=== PATIENT | male | born 1985 | race Caucasian/White ===

== ENCOUNTER 2017-04-22 19:43 | Inpatient (IN) | payer OTHER ==
[~2017-04-22] VITALS: Ht 170.2 cm; Wt 73.4 kg
[2017-04-22] MEDS ORDERED: SODIUM CHLORIDE 0.9% 1L BAG IV* STA (20:54)
[2017-04-22] MEDS ORDERED: ACETAMINOPHEN 325 MG TAB PO STA (20:54)
[2017-04-22 21:37] LABS: ADD SCAN DIFF NO
[2017-04-22 21:41] LABS: BASOPHILS % 0.1 % (0.0-2.0); EOSINOPHILS % 0.1 % (0.0-7.0); HEMATOCRIT 43.7 % (42.0-52.0); HEMOGLOBIN 14.4 g/dl (14.0-18.0); LYMPHOCYTES # 2.4 10^3/ul (0.8-2.9); LYMPHOCYTES % 33.7 % (15.0-51.0); MEAN CORPUSCULAR HEMOGLOBIN 29.4 pg (29.0-33.0); MEAN CORPUSCULAR VOLUME 89.2 fl (82.0-101.0); MEAN PLATELET VOLUME 10.2 fl (7.4-10.4); MONOCYTE # 0.5 10^3/ul (0.3-0.9); MONOCYTES % 6.2 % (0.0-11.0); NEUTROPHIL # 4.3 10^3/ul (1.6-7.5); NEUTROPHILS % 59.6 % (39.0-77.0); PLATELET COUNT 213 10^3/UL (140-415); RED CELL DISTRIBUTION WIDTH 12.1 % (11.5-14.5); WHITE BLOOD COUNT 7.2 10^3/ul (4.8-10.8)
[2017-04-22 21:41] LABS: ADD UMIC NO; UR BILIRUBIN (Dip) NEGATIVE (NEGATIVE); UR BLOOD (Dip) NEGATIVE (NEGATIVE); UR CLARITY CLEAR (CLEAR); UR COLOR LT. YELLOW (YELLOW); UR GLUCOSE (Dip) NEGATIVE (NEGATIVE); UR KETONES (Dip) NEGATIVE (NEGATIVE); UR LEUKOCYTE ESTERASE (Dip) NEGATIVE (NEGATIVE); UR NITRITE (Dip) NEGATIVE (NEGATIVE); UR TOTAL PROTEIN (Dip) NEGATIVE (NEGATIVE); UR UROBILINOGEN (Dip) 0.2 E.U./dL (0.1-1.0)
--- NOTE | 2017-04-22 21:44 | RADRPT ---
PROCEDURE: XR Chest. CLINICAL INDICATION: chest pain TECHNIQUE: Single frontal view of the chest was obtained COMPARISON: None FINDINGS: The heart and mediastinum are within normal limits. The lungs are clear. There is no pleural effusion or pneumothorax. RPTAT: AA IMPRESSION: No acute disease. .Hemant Boggs MD, Date Time Electronically viewed and signed by .Hemant Boggs MD, on 04/22/2017 21:44 .S/
[2017-04-22 21:56] LABS: INR 0.99; PARTIAL THROMBOPLASTIN TIME 27.1 Sec (25.0-35.0); PROTIME 13.1 Sec (12.2-14.2)
[2017-04-22 21:59] LABS: ALBUMIN 5.1 g/dl (3.3-4.9); ALBUMIN/GLOBULIN RATIO 1.64; BILIRUBIN,INDIRECT 0.3 mg/dl (0-1.1); BILIRUBIN,TOTAL 0.3 mg/dl (0.2-1.3); CALCIUM 9.6 mg/dl (8.4-10.2); CREATININE 0.87 mg/dl (0.61-1.24); POTASSIUM 3.9 mmol/L (3.5-5.1); TOTAL PROTEIN 8.2 g/dl (6.1-8.1)
[2017-04-22 22:16] LABS: TROPONIN-I 4.38 ng/ml (0.00-0.12)
--- NOTE | 2017-04-22 22:23 | ERD ---
ER Documentation Chief Complaint Date/Time DATE: 04/22/17 TIME: 22:20 Chief Complaint Fever and abdominal pain. Given IM antibiotics and amoxicillin HPI This is a 31-year-old male presents to the ER for fever that started on Wednesday. Patient was asymptomatic other than fever. On Wednesday patient went to his PCP who gave him a dose of ceftriaxone and then went to the dose on Wednesday. Patient was sent home with amoxicillin 3 times daily. Today patient called his primary care doctor who informed him that blood work that was drawn at the office was normal and told him to discontinue ibuprofen to see if he still had a fever. Patient is continued ibuprofen and states that he was still spiking fevers up to 103. Patient does admit to some mild joint pain, mild crampy abdominal pain and a mild cough that started today. He denies any chest pain, shortness of breath, dyspnea. She did travel to [facility] a week before he got sick. There are no sick contacts at home. He denies any nausea vomiting or diarrhea he denies any urine frequency or dysuria. Denies any hematuria ROS 12 point review of systems was done, all negative except per HPI. Allergies Allergies: Coded Allergies: No Known Allergy (Unverified , 04/22/17) PMhx/Soc Medical and Surgical Hx: pt denies Medical Hx History of Surgery: Yes (SKIN GRAFTS CHILD) Anesthesia Reaction: No Hx Neurological Disorder: No Hx Respiratory Disorders: No Hx Cardiac Disorders: No Hx Psychiatric Problems: No Hx Miscellaneous Medical Probl: No Hx Alcohol Use: No Hx Substance Use: No Hx Tobacco Use: Yes Smoking Status: Current every day smoker Physical Exam Vitals Vital Signs Date Time Temp Pulse Resp B/P Pulse Ox O2 Delivery O2 Flow Rate FiO2 04/22/17 22:05 101.2 104 18 123/75 97 Room Air 04/22/17 19:59 103.0 108 20 116/79 97 Physical Exam GENERAL: The patient is well developed and appropriate for usual state of health , in no apparent distress. HEENT: Atraumatic. Conjunctivae are pink. Pupils equal, round, and reactive to light. Extraocular muscles are grossly intact. Bilateral tympanic membranes are clear with no evidence of erythema, effusion or dulling of the light reflex. The oropharynx is clear with no erythema or exudates. NECK: C-spine is soft and supple. There is no cervical lymphadenopathy. Negative Kernig negative Brudzinski CHEST: Clear to auscultation bilaterally. There are no rales, wheezes or rhonchi. HEART: Regular rate and rhythm. No murmurs, clicks, rubs or gallops. ABDOMEN: Soft, nontender and nondistended. Good bowel sounds. No rebound or guarding. No gross peritonitis. No gross organomegaly or masses. No Freire sign or McBurney point tenderness. BACK: No midline or flank tenderness. NEURO: Alert and oriented. Cranial nerves II through XII are intact. Motor strength in all 4 extremities with 5/5 strength. Sensation grossly intact. Normal speech and gait. SKIN: There is no apparent rash or petechia. The skin is warm and dry. Result Diagram: 04/22/17210804/22/172108 Results 24 hrs Laboratory Tests Test 04/22/17 21:03 04/22/17 21:09 Urine Color LT. YELLOW Urine Clarity CLEAR Urine pH 7.5 Urine Specific [place] 1.015 Urine Ketones NEGATIVE Urine Nitrite NEGATIVE Urine Bilirubin NEGATIVE Urine Urobilinogen 0.2 E.U./dL Urine Leukocyte Esterase NEGATIVE Urine Hemoglobin NEGATIVE Urine Glucose NEGATIVE% Urine Total Protein NEGATIVE White Blood Count 7.210^3/ul Red Blood Count 4.9010^6/ul Hemoglobin 14.4g/dl Hematocrit 43.7% Mean Corpuscular Volume 89.2fl Mean Corpuscular Hemoglobin 29.4pg Mean Corpuscular Hemoglobin Concent 33.0g/dl Red Cell Distribution Width 12.1% Platelet Count 10704^3/UL Mean Platelet Volume 10.2fl Neutrophils % 59.6% Lymphocytes % 33.7% Monocytes % 6.2% Eosinophils % 0.1% Basophils % 0.1% Nucleated Red Blood Cells % 0.0/100WBC Neutrophils # 4.310^3/ul Lymphocytes # 2.410^3/ul Monocytes # 0.510^3/ul Eosinophils # 0.010^3/ul Basophils # 0.010^3/ul Nucleated Red Blood Cells # 0.010^3/ul Prothrombin Time 13.1Sec Prothrombin Time Ratio 1.0 INR International Normalized Ratio 0.99 Activated Partial Thromboplast Time 27.1Sec Sodium Level 142mmol/L Potassium Level 3.9mmol/L Chloride Level 102mmol/L Carbon Dioxide Level 28mmol/L Anion Gap 16 Blood Urea Nitrogen 8mg/dl Creatinine 0.87mg/dl Glucose Level 110mg/dl Lactic Acid Level 1.8mmol/L Calcium Level 9.6mg/dl Total Bilirubin 0.3mg/dl Direct Bilirubin 0.00mg/dl Indirect Bilirubin 0.3mg/dl Aspartate Amino Transf (AST/SGOT) 75IU/L Alanine Aminotransferase (ALT/SGPT) 97IU/L Alkaline Phosphatase 113IU/L Troponin I 4.380ng/ml Total Protein 8.2g/dl Albumin 5.1g/dl Globulin 3.10g/dl Albumin/Globulin Ratio 1.64 Current Medications Medications (Trade) Dose Ordered Sig/Ramona Route PRN Reason Start Time Stop Time Status Last Admin Dose Admin Sodium Chloride (NS) 2,140 ml BOLUS OVER 2 HOURS STAT IV* 04/22/17 20:54 04/22/17 20:58 DC 04/22/17 21:07 Acetaminophen (Tylenol Tab) 650 mg ONCE STAT PO 04/22/17 20:54 04/22/17 20:58 DC 04/22/17 21:07 Procedures/MDM Differential diagnosis includes but is not limited to; viral illness, influenza , otitis media, strep throat, endocarditis, meningitis, sepsis. At this time patient's troponin is elevated, he will be transferred to ER 1 for further management and care and to rule out pulmonary embolism. Departure Diagnosis: Primary Impression: Fever Condition: EJ De La Cruz Apr 22, 2017 22:23
--- NOTE | 2017-04-22 22:32 | RADRPT ---
PROCEDURE: Right upper quadrant ultrasound. CLINICAL INDICATION: Sepsis, stomach cramps, fever. TECHNIQUE: Multiple real-time longitudinal and transverse images of the right upper quadrant of th e abdomen were acquired utilizing a curved array transducer. Images were reviewed on a high-resoluti on PACS workstation. COMPARISON: None. FINDINGS: The pancreas head and body are unremarkable. The pancreas tail is not well seen. The liver is echogenic, consistent with fatty infiltration. A focal area of fatty sparing is seen wi thin the liver, anterior to the gallbladder and main portal vein. The liver measures 15.5 cm in dale gth. No hepatic lesion or intrahepatic biliary ductal dilatation is seen. The portal vein is paten t with hepatopetal flow. No gallstones or sludge are seen within the gallbladder lumen. The gallbladder wall is not thickene d. There is no pericholecystic fluid. The common bile duct measures 3 mm in diameter, not dilated. The right kidney measures 9.9 cm in length. Renal echogenicity is normal. There is no hydronephros is, urinary calculus, or renal mass. The visualized portions of the aorta and IVC are unremarkable. IMPRESSION: 1. Normal appearance of gallbladder and bile ducts. 2. Fatty infiltration of the liver. RPTAT: HTAR .Trae Bruno MD, Date Time Electronically viewed and signed by .Trae Bruno MD, MD on 04/22/2017 22:32 .R/
[2017-04-22] MEDS ORDERED: SOD CHLORIDE 0.9% 100 ML ONE (22:50)
[2017-04-22] MEDS ORDERED: IOHEXOL 100 ML ONE (22:50)
[2017-04-22] MEDS ORDERED: IOHEXOL 350MG/ML 50 ML BTL ONE (22:51)
[2017-04-22] MEDS ORDERED: IBUP-1542 PO (23:27)
[2017-04-22] MEDS ORDERED: AMO500 PO (23:27)
[2017-04-23] VITALS (13 sets, daily range): BP systolic 93–174; BP diastolic 52–82; PULSE 70–97; RESP 18–20; TEMP 98.2; Ht 170.2 cm; Wt 73.4 kg
--- NOTE | 2017-04-23 00:16 | RADRPT ---
PROCEDURE: CT abdomen and pelvis with intravenous contrast. CLINICAL INDICATION: Pain. TECHNIQUE: CT of the abdomen/pelvis was performed utilizing axial images with reconstructions in s agittal and coronal planes after uneventful administration of 100 cc Omnipaque 300. The administered radiation dose is CTDI 17 mGy, DLP 945 mGy-cm. COMPARISON: No pertinent prior examinations were submitted for comparison. FINDINGS: Visualized Chest: Please refer to the CTA of the chest performed at the same time. Abdomen: The liver, spleen, pancreas, gallbladder,and adrenal glands are unremarkable. The kidneys are without hydronephrosis. No definite urinary calculi are seen. There is no evidence of bowel obstruction. The appendix is normal. No intra-abdominal free air is seen. There is no evidence of intra-abdominal adenopathy or free fluid. There is no evidence of aortic dissection or aneurysm. Major branches of the aorta are patent. Pelvis: There is no evidence of pelvic adenopathy or free fluid. The prostate and bladder are unremarkable. Osseous structures: Unremarkable. IMPRESSION: No acute findings. No evidence of aortic dissection or aneurysm. RPTAT: HIKT .Reagan Allen MD, MD Date Time Electronically viewed and signed by .Reagan Allen MD, on 04/23/2017 00:15 .T/
--- NOTE | 2017-04-23 00:19 | RADRPT ---
PROCEDURE: CT angiogram chest abdomen. CLINICAL INDICATION: Chest and abdominal pain TECHNIQUE: CT angiogram of the chest/abdomen/pelvis was performed utilizing axial images with burt nstructions in sagittal and coronal planes after the uneventful intravenous administration of 120 cc Omnipaque 350 contrast. The administered radiation dose is CTDI 6.6 mGy, DLP 764 mGy-cm. COMPARISON: No pertinent prior examinations are submitted for comparison. FINDINGS: Aortogram: There is no evidence of aortic dissection or aneurysm. Some scattered atherosclerotic c alcifications are noted within the aorta and its branches. Major branches of the aorta are patent. Pulmonary angiogram: The pulmonary arteries are adequately opacified to the level of the segmental pulmonary artery branches. There is minimal respiratory motion artifact. There is no evidence of p ulmonary embolus. Chest: A small area of patchy airspace opacity is noted within the peripheral right lower lobe. The trache obronchial tree is patent. There is no evidence of pleural effusion. The heart is normal in size. No pericardial effusion is seen. Mildly enlarged subcarinal and right hilar lymph nodes are present. Mild gynecomastia is noted. Abdomen: Please refer to the separately dictated report of the abdomen and pelvis. Osseous structures: Unremarkable. IMPRESSION: No evidence of aortic dissection or aneurysm. No evidence of pulmonary embolus. Small area of patchy airspace opacity in the right lower lobe likely due to a small area of pneumoni tis. Mild mediastinal and right hilar adenopathy which is nonspecific. RPTAT: HIKT .Reagan Allen MD, MD Date Time Electronically viewed and signed by .Reagan Allen MD, on 04/23/2017 00:18 .T/
[2017-04-23] MEDS ORDERED: LEVOFLOXACIN 750MG/D5W (PMX) 150 ML IVPB ONE (01:00)
[2017-04-23] MEDS ORDERED: CEFTRIAXONE 1 GM/50 ML (PMX) 50 ML IVPB ONE (01:00)
[2017-04-23] MEDS ORDERED: ASPIRIN 325 MG TAB PO ONE (01:00)
--- NOTE | 2017-04-23 01:51 | ERA ---
ER Documentation Chief Complaint Date/Time DATE: 04/23/17 TIME: 01:46 Chief Complaint Fever and abdominal pain HPI The patient was initially seen by the PA in ED 2 and sent to ED 1 for further evaluation The patient is a 31-year-old male, presenting to the ER because of intermittent fever, associated with abdominal pain for 5 days. He traveled to [place] about 2 weeks ago. He went to see his doctor 3 days ago and received Rocephin injection 3 days ago and 2 days ago and started on amoxicillin 2 days ago. He also complained of intermittent cough, dyspnea, chest pain today. He complains of diffuse abdominal pain, denied dysuria, diarrhea, constipation. He smokes, drinks socially, denies any illicit drug Past medical history: Mitral valve prolapse Past surgical history: None ROS All systems reviewed and are negative except as per history of present illness. Medications Home Meds Reported Medications Amoxicillin* (Amoxicillin*) 500 Mg Cap, 500 MG PO Q8, #30 CAP 04/22/17 Ibuprofen* (Ibuprofen*) 600 Mg Tablet, 600 MG PO Q6, TAB 04/22/17 Allergies Allergies: Coded Allergies: No Known Allergy (Unverified , 04/22/17) PMhx/Soc Medical and Surgical Hx: pt denies Medical Hx History of Surgery: Yes (SKIN GRAFTS DUE TO BLACK) Anesthesia Reaction: No Hx Neurological Disorder: No Hx Respiratory Disorders: No Hx Cardiac Disorders: Yes (MITRAL VALVE PROLAPSE) Hx Psychiatric Problems: No Hx Miscellaneous Medical Probl: No Hx Alcohol Use: Yes Hx Substance Use: No Hx Tobacco Use: Yes Smoking Status: Current some day smoker Physical Exam Vitals Vital Signs Date Time Temp Pulse Resp B/P Pulse Ox O2 Delivery O2 Flow Rate FiO2 04/23/17 01:09 98.2 79 18 111/80 100 Room Air 04/22/17 22:42 99.5 100 20 129/79 99 Room Air 04/22/17 22:05 101.2 104 18 123/75 97 Room Air 04/22/17 19:59 103.0 108 20 116/79 97 Physical Exam Const: No acute distress. Head: Atraumatic. Eyes: Normal Conjunctiva. ENT: Normal External Ears, Nose and Mouth. Bilateral tympanic membrane and oropharynx are within normal limits Neck: Full range of motion. No meningismus. Resp: Clear to auscultation, tachypneic Cardio: Regular tachycardic Abd: Soft, non distended, normal bowel sounds, diffuse abdominal tenderness, more tender in the right upper quadrant, no rigidity, rebound, CVA tenderness Skin: No petechiae or rashes. Back: No midline or flank tenderness. Ext: No cyanosis, or edema. Neur: Awake and alert. No focal deficit Psych: Normal Mood and Affect. Result Diagram: 04/22/17210804/22/172108 Results 24 hrs Laboratory Tests Test 04/22/17 21:03 04/22/17 21:09 04/22/17 23:33 Urine Color LT. YELLOW Urine Clarity CLEAR Urine pH 7.5 Urine Specific [place] 1.015 Urine Ketones NEGATIVE Urine Nitrite NEGATIVE Urine Bilirubin NEGATIVE Urine Urobilinogen 0.2 E.U./dL Urine Leukocyte Esterase NEGATIVE Urine Hemoglobin NEGATIVE Urine Glucose NEGATIVE% Urine Total Protein NEGATIVE White Blood Count 7.210^3/ul Red Blood Count 4.9010^6/ul Hemoglobin 14.4g/dl Hematocrit 43.7% Mean Corpuscular Volume 89.2fl Mean Corpuscular Hemoglobin 29.4pg Mean Corpuscular Hemoglobin Concent 33.0g/dl Red Cell Distribution Width 12.1% Platelet Count 41557^3/UL Mean Platelet Volume 10.2fl Neutrophils % 59.6% Lymphocytes % 33.7% Monocytes % 6.2% Eosinophils % 0.1% Basophils % 0.1% Nucleated Red Blood Cells % 0.0/100WBC Neutrophils # 4.310^3/ul Lymphocytes # 2.410^3/ul Monocytes # 0.510^3/ul Eosinophils # 0.010^3/ul Basophils # 0.010^3/ul Nucleated Red Blood Cells # 0.010^3/ul Prothrombin Time 13.1Sec Prothrombin Time Ratio 1.0 INR International Normalized Ratio 0.99 Activated Partial Thromboplast Time 27.1Sec Sodium Level 142mmol/L Potassium Level 3.9mmol/L Chloride Level 102mmol/L Carbon Dioxide Level 28mmol/L Anion Gap 16 Blood Urea Nitrogen 8mg/dl Creatinine 0.87mg/dl Glucose Level 110mg/dl Lactic Acid Level 1.8mmol/L 1.2mmol/L Calcium Level 9.6mg/dl Total Bilirubin 0.3mg/dl Direct Bilirubin 0.00mg/dl Indirect Bilirubin 0.3mg/dl Aspartate Amino Transf (AST/SGOT) 75IU/L Alanine Aminotransferase (ALT/SGPT) 97IU/L Alkaline Phosphatase 113IU/L Troponin I 4.380ng/ml Total Protein 8.2g/dl Albumin 5.1g/dl Globulin 3.10g/dl Albumin/Globulin Ratio 1.64 Current Medications Medications (Trade) Dose Ordered Sig/Ramona Route PRN Reason Start Time Stop Time Status Last Admin Dose Admin Sodium Chloride (NS) 2,140 ml BOLUS OVER 2 HOURS STAT IV* 04/22/17 20:54 04/22/17 20:58 DC 04/22/17 21:07 Acetaminophen (Tylenol Tab) 650 mg ONCE STAT PO 04/22/17 20:54 04/22/17 20:58 DC 04/22/17 21:07 Aspirin 325 mg 325 mg ONCE ONCE PO 04/23/17 01:00 04/23/17 01:01 DC 04/23/17 00:54 Ceftriaxone Sodium 50 ml @ 100 mls/hr ONCE ONCE IVPB 04/23/17 01:00 04/23/17 01:29 DC 04/23/17 00:54 Levofloxacin/ Dextrose (Levaquin 750 Mg/ D5W 150 ml (Pmx)) 150 ml @ 100 mls/hr ONCE ONCE IVPB 04/23/17 01:00 04/23/17 02:29 04/23/17 01:22 IV Flush 10 ml 10 ml STK-MED ONCE .ROUTE 04/22/17 22:50 04/23/17 00:46 DC Sodium Chloride 100 ml @ ud STK-MED ONCE .ROUTE 04/22/17 22:50 04/23/17 00:46 DC Iohexol (Omnipaque) 100 ml @ ud STK-MED ONCE .ROUTE 04/22/17 22:50 04/23/17 00:46 DC Iohexol (Omnipaque 350mg/ ml) 50 ml STK-MED ONCE .ROUTE 04/22/17 22:51 04/23/17 00:46 DC Procedures/[place] [id number] Radiology Main Line: [phone] DIAGNOSTIC IMAGING REPORT Patient: SAMEER BEAN : 1985 Age: 31 Sex: M MR #: [id number] DOS: 04/22/172053 Ordering MD: EJ HILL PA-C Location: E/R Room/Bed: PROCEDURE: Right upper quadrant ultrasound. CLINICAL INDICATION: Sepsis, stomach cramps, fever. TECHNIQUE: Multiple real-time longitudinal and transverse images of the right upper quadrant of the abdomen were acquired utilizing a curved array transducer. Images were reviewed on a high-resolution PACS workstation. COMPARISON: None. FINDINGS: The pancreas head and body are unremarkable. The pancreas tail is not well seen. The liver is echogenic, consistent with fatty infiltration. A focal area of fatty sparing is seen within the liver, anterior to the gallbladder and main portal vein. The liver measures 15.5 cm in length. No hepatic lesion or intrahepatic biliary ductal dilatation is seen. The portal vein is patent with hepatopetal flow. No gallstones or sludge are seen within the gallbladder lumen. The gallbladder wall is not thickened. There is no pericholecystic fluid. The common bile duct measures 3 mm in diameter, not dilated. The right kidney measures 9.9 cm in length. Renal echogenicity is normal. There is no hydronephrosis, urinary calculus, or renal mass. The visualized portions of the aorta and IVC are unremarkable. IMPRESSION: 1. Normal appearance of gallbladder and bile ducts. 2. Fatty infiltration of the liver. RPTAT: HTAR .Trae Bruno MD, Date Time Electronically viewed and signed by .Trae Bruno MD, on 04/22/2017 22:32 .R/ CC: EJ HILL [place] [address] Radiology Main Line: [phone] DIAGNOSTIC IMAGING REPORT Patient: SAMEER BEAN : 1985 Age: 31 Sex: M MR #: [id number] DOS: 04/22/172053 Ordering MD: EJ HILL PA-C Location: FTE Room/Bed: PROCEDURE: XR Chest. CLINICAL INDICATION: chest pain TECHNIQUE: Single frontal view of the chest was obtained COMPARISON: None FINDINGS: The heart and mediastinum are within normal limits. The lungs are clear. There is no pleural effusion or pneumothorax. RPTAT: AA IMPRESSION: No acute disease. .Hemant Boggs MD, Date Time Electronically viewed and signed by .Hemant Boggs MD, on 04/22/2017 21: 44 .S/ CC: EJ HILL [place] [address] Radiology Main Line: [phone] DIAGNOSTIC IMAGING REPORT Patient: SAMEER BEAN : 1985 Age: 31 Sex: M MR #: [id number] DOS: 04/22/172229 Ordering MD: EBONY GONZALES MD Location: E/R Room/Bed: PROCEDURE: CT angiogram chest abdomen. CLINICAL INDICATION: Chest and abdominal pain TECHNIQUE: CT angiogram of the chest/abdomen/pelvis was performed utilizing axial images with reconstructions in sagittal and coronal planes after the uneventful intravenous administration of 120 cc Omnipaque 350 contrast. The administered radiation dose is CTDI 6.6 mGy, DLP 764 mGy-cm. COMPARISON: No pertinent prior examinations are submitted for comparison. FINDINGS: Aortogram: There is no evidence of aortic dissection or aneurysm. Some scattered atherosclerotic calcifications are noted within the aorta and its branches. Major branches of the aorta are patent. Pulmonary angiogram: The pulmonary arteries are adequately opacified to the level of the segmental pulmonary artery branches. There is minimal respiratory motion artifact. There is no evidence of pulmonary embolus. Chest: A small area of patchy airspace opacity is noted within the peripheral right lower lobe. The tracheobronchial tree is patent. There is no evidence of pleural effusion. The heart is normal in size. No pericardial effusion is seen. Mildly enlarged subcarinal and right hilar lymph nodes are present. Mild gynecomastia is noted. Abdomen: Please refer to the separately dictated report of the abdomen and pelvis. Osseous structures: Unremarkable. IMPRESSION: No evidence of aortic dissection or aneurysm. No evidence of pulmonary embolus. Small area of patchy airspace opacity in the right lower lobe likely due to a small area of pneumonitis. Mild mediastinal and right hilar adenopathy which is nonspecific. RPTAT: HIKT .Reagan Allen MD, MD Date Time Electronically viewed and signed by .Reagan Allen MD, MD on 04/23/2017 00:18 .T/ CC: EBONY GONZALES MD [place] [address] Radiology Main Line: [phone] DIAGNOSTIC IMAGING REPORT Patient: SAMEER BEAN : 1985 Age: 31 Sex: M MR #: [id number] DOS: 04/22/170 Ordering MD: EBONY GONZALES MD Location: E/R Room/Bed: PROCEDURE: CT abdomen and pelvis with intravenous contrast. CLINICAL INDICATION: Pain. TECHNIQUE: CT of the abdomen/pelvis was performed utilizing axial images with reconstructions in sagittal and coronal planes after uneventful administration of 100 cc Omnipaque 300. The administered radiation dose is CTDI 17 mGy, DLP 945 mGy-cm. COMPARISON: No pertinent prior examinations were submitted for comparison. FINDINGS: Visualized Chest: Please refer to the CTA of the chest performed at the same time. Abdomen: The liver, spleen, pancreas, gallbladder,and adrenal glands are unremarkable. The kidneys are without hydronephrosis. No definite urinary calculi are seen. There is no evidence of bowel obstruction. The appendix is normal. No intra- abdominal free air is seen. There is no evidence of intra-abdominal adenopathy or free fluid. There is no evidence of aortic dissection or aneurysm. Major branches of the aorta are patent. Pelvis: There is no evidence of pelvic adenopathy or free fluid. The prostate and bladder are unremarkable. Osseous structures: Unremarkable. IMPRESSION: No acute findings. No evidence of aortic dissection or aneurysm. RPTAT: HIKT .Reagan Allen MD, MD Date Time Electronically viewed and signed by .Reagan Allen MD, MD on 04/23/2017 00:15 .T/ CC: EBONY GONZALES MD MEDICAL MAKING DECISION: The patient is a 31-year-old male, presenting with acute pneumonia, acute troponin elevation of unclear significance. He was treated with normal saline 30 mL/kg IV, Tylenol 650 mg p.o. for fever, aspirin 325 mg p.o. for acute troponin elevation, Rocephin IV and Levaquin IV for acute pneumonia The differential diagnoses considered include but are not limited to acute non- STEMI, acute viral myocarditis, acute endocarditis, acute coronary syndrome, acute myocardial infarction, pericarditis, pulmonary embolism, aortic dissection , pneumonia, pleural effusion, pneumothorax, GERD, chest wall pain. Critical Care: Time: 35 minutes excluding all billable procedures. Treatments/Evaluations: Close monitoring and treatment of unstable vital signs, cardiorespiratory, and neurologic status, while maintaining tight balance of fluid, respiratory, and cardiac interventions. Departure Diagnosis: Primary Impression: Pneumonia Additional Impression: Elevated troponin Condition: Stable Comments I discussed the findings with the patient. I discussed the patient with the on- call hospitalist Dr. Chacon at 1240 am who was made aware of the lab, the treatment, the patient condition. The patient is admitted to telemetry EBONY GONZALES MD Apr 23, 2017 01:51
[2017-04-23] MEDS ORDERED: HEPARIN 1000 UNITS/ML 10 ML INJ IV ONE (03:00)
[2017-04-23] MEDS ORDERED: NACL 0.9% 3 ML SYG IV SCH (03:00)
[2017-04-23] MEDS ORDERED: morphine 2 MG INJ IV PRN (03:00)
[2017-04-23] MEDS ORDERED: ONDANSETRON 4 MG INJ IV PRN (03:00)
[2017-04-23] MEDS: SOD CHLORIDE 0.9% 1,000 ML IV SCH ×2 (03:29→20:21)
[2017-04-23] MEDS: HEPARIN 25000 UNITS/D5W 250 ML IV SCH ×2 (03:37→17:55)
[2017-04-23] MEDS: PANTOPRAZOLE 40 MG INJ IV SCH (06:05)
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
[2017-04-23] MEDS ORDERED: HEPARIN 1000 UNITS/ML 10 ML INJ IV PRN (09:00)
[2017-04-23] MEDS: ASPIRIN 81 MG TAB PO SCH (09:45)
[2017-04-23] MEDS ORDERED: METOPROLOL 50 MG TAB PO STA ×2 (10:16→10:50)
[2017-04-23] MEDS ORDERED: ALPRAZOLAM 0.25 MG TAB PO STA (10:50)
--- NOTE | 2017-04-23 10:57 | RADRPT ---
Echocardiogram Report Patient Name: SAMEER BEAN Gender: Male Date: 1985 Study Date: 23-Apr-2017 Cheese Packer: Kendrick Leon [facility] Location: 5537 Ref. Physician: MARIANNE VILLAGRAN Quality: Good Procedures: Transthoracic echocardiogram with complete 2D, M-Mode, and doppler examination. Indications: Evaluate troponin. 2D/M Mode Doppler Measurement Value Normal Ranges Measurement Value Normal Ranges LVIDd 2D 4.2 3.5 - 5.6 cm STEVEN Vmax 2.7 cm2 LVIDs 2D 2.4 2.1 - 4.1 cm STEVEN VTI 2.7 cm2 LVPWd 2D 1.3 0.6 - 1.1 cm AV Peak Azar 0.9 m/sec IVSd 2D 1.3 0.6 - 1.1 cm AV Peak PG 3.1 mmHg AoR Diam 2D 2.8 2.0 - 3.7 cm LVOT Peak Azar 0.8 m/sec EDV 2D 76.7 cm3 LVOT Peak PG 2.4 mmHg ESV 2D 13.9 cm3 MV E Peak Azar 0.8 m/sec LA Dimen 2D 3.1 2.3 - 4.0 cm MV A Peak Azar 0.6 m/sec LVOT Diam 2.0 cm MV E/A 1.3 MV Decel Time 242 msec MV Decel Plumas 3 MV E/A 1.3 TR Peak Azar 2.4 m/sec TR Peak PG 22.7 mmHg RVSP 25.7 mmHg Findings Left Ventricle: Normal left ventricular systolic function. Normal left ventricular cavity size. Mild concentric left ventricular hypertrophy. Ejection fraction is visually estimated at 55 %. Tissue Doppler/Mitral Doppler indices are within normal limits. Right Ventricle: Normal right ventricular size. Normal right ventricular systolic function. Left Atrium: The left atrium is normal in size. Right Atrium: The right atrium is normal in size. Mitral Valve: Normal appearance and function of the mitral valve with trace physiologic regurgitation. Aortic Valve: Normal appearance of the aortic valve. No significant aortic stenosis or insufficiency. Tricuspid Valve: Normal appearance of the tricuspid valve. Estimated peak PA systolic pressure 25 mmHg. There is trace tricuspid regurgitation. Pulmonic Valve: Normal pulmonic valve appearance. Pericardium: Normal pericardium with no significant pericardial effusion. Aorta: Normal aortic root. IVC: Normal size and normal respiratory collapse consistent with normal right atrial pressure. Pulmonary Artery: Normal pulmonary artery size. Conclusions Normal left ventricular systolic function. Normal left ventricular cavity size. Mild concentric left ventricular hypertrophy. Ejection fraction is visually estimated at 55 %. Tissue Doppler/Mitral Doppler indices are within normal limits. Normal right ventricular size. Normal right ventricular systolic function. The left atrium is normal in size. The right atrium is normal in size. No significant valvular stenosis or regurgitation seen. Normal pericardium with no significant pericardial effusion. Electronically Signed By: Malik Jaime 23-Apr-2017 10:56:44 -0700 Patient Name: SAMEER BEAN Study Date: 23-Apr-2017 [id number]
[2017-04-23 11:00] LABS: CK-MB 10.7 ng/ml (0.0-2.4); TROPONIN-I 4.9 ng/ml (0.00-0.12)
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
[2017-04-23 11:40] LABS: OPIATES Negative (NEGATIVE)
[2017-04-23 11:42] LABS: BARBITURATES Negative (NEGATIVE); BENZODIAZEPINES Negative (NEGATIVE)
[2017-04-23 11:43] LABS: CANNABINOIDS Negative (NEGATIVE); COCAINE Negative (NEGATIVE)
[2017-04-23] MEDS ORDERED: DILTIAZEM 60 MG TAB PO STA (13:11)
[2017-04-23] MEDS ORDERED: METOPROLOL 100 MG TAB PO STA (14:30)
--- NOTE | 2017-04-23 14:36 | RADRPT ---
Vent Rate: 71 bpm RR Interval: 0 msec MO Interval: 132 msec QRS Duration: 94 msec QT Interval: 374 msec QTC Interval: 406 msec P-R-T [place]: 49 - 66 - 51 degrees Normal sinus rhythm Normal ECG Electronically Signed By: Malik Jaime [id number]
[2017-04-23] MEDS: ACETAMINOPHEN 325 MG TAB PO PRN (15:05)
[2017-04-23] MEDS: IBUPROFEN 400 MG TAB PO SCH (17:11)
[2017-04-23] MEDS: ATORVASTATIN 40 MG TAB PO SCH (20:20)
[2017-04-24] VITALS (12 sets, daily range): BP systolic 99–121; BP diastolic 58–73; PULSE 62–101; RESP 15–20
[2017-04-24] MEDS: IBUPROFEN 400 MG TAB PO SCH ×4 (00:27→23:50)
[2017-04-24] MEDS: LEVOFLOXACIN 750MG/D5W (PMX) 150 ML IVPB SCH (00:33)
[2017-04-24] MEDS: HEPARIN 25000 UNITS/D5W 250 ML IV SCH ×2 (03:44→09:45)
[2017-04-24] MEDS: PANTOPRAZOLE 40 MG INJ IV SCH (05:54)
[2017-04-24 08:03] LABS: ADD SCAN DIFF NO
[2017-04-24 08:12] LABS: BASOPHILS % 0.3 % (0.0-2.0); EOSINOPHILS # 0.1 10^3/ul (0.0-0.5); EOSINOPHILS % 0.7 % (0.0-7.0); HEMATOCRIT 37.9 % (42.0-52.0); HEMOGLOBIN 12.7 g/dl (14.0-18.0); LYMPHOCYTES # 2.1 10^3/ul (0.8-2.9); LYMPHOCYTES % 31.5 % (15.0-51.0); MEAN CORPUSCULAR HEMOGLOBIN 29.8 pg (29.0-33.0); MEAN CORPUSCULAR HGB CONC 33.5 g/dl (32.0-37.0); MEAN PLATELET VOLUME 10.3 fl (7.4-10.4); MONOCYTE # 0.7 10^3/ul (0.3-0.9); NEUTROPHIL # 3.9 10^3/ul (1.6-7.5); NEUTROPHILS % 57.2 % (39.0-77.0); PLATELET COUNT 188 10^3/UL (140-415); RED BLOOD COUNT 4.26 10^6/ul (4.70-6.10); RED CELL DISTRIBUTION WIDTH 12.3 % (11.5-14.5); WHITE BLOOD COUNT 6.8 10^3/ul (4.8-10.8)
[2017-04-24 08:40] LABS: ALBUMIN 4.1 g/dl (3.3-4.9); ALBUMIN/GLOBULIN RATIO 1.64; BILIRUBIN,INDIRECT 0.3 mg/dl (0-1.1); BILIRUBIN,TOTAL 0.3 mg/dl (0.2-1.3); CALCIUM 8.8 mg/dl (8.4-10.2); CHOL/HDL RATIO 5.9 RATIO; CREATININE 0.69 mg/dl (0.61-1.24); MAGNESIUM 2.1 mg/dl (1.7-2.5); TOTAL PROTEIN 6.6 g/dl (6.1-8.1)
[2017-04-24 08:47] LABS: CK-MB 4.92 ng/ml (0.0-2.4); TROPONIN-I 3.16 ng/ml (0.00-0.12)
[2017-04-24] MEDS: ASPIRIN 81 MG TAB PO SCH (08:58)
--- NOTE | 2017-04-24 11:31 | CONS ---
Date/Time of Note Date/Time of Note DATE: 04/24/17 TIME: 11:30 Assessment/Plan Assessment/Plan Chief Complaint/Hosp Course 1) Troponinincrease 2) SIRS 3) preserved LV function Problems: Additional Assessment/Plan 1) Findings of troponinincrease may be suggestive of zander/myocarditis 2) echo repeat in few days to ruled out reduction in EF 3) CTA of coronary arteries Consultation Date/Type/Reason Admit Date/Time Apr 23, 2017 at 00:44 Type of Consultation: cv Detailed Summary Respiratory: no complaints Cardiovascular: no complaints Gastrointestinal: no complaints Musculoskeletal: no complaints Skin: no complaints Neurologic: no complaints Exam/Review of Systems Vital Signs Vitals Vital Signs Date Time Temp Pulse Resp B/P Pulse Ox O2 Delivery O2 Flow Rate FiO2 04/24/17 11:23 99.7 87 20 115/60 97 04/23/17 02:39 Room Air Intake and Output 04/23/17 04/23/17 04/24/17 15:00 23:00 07:00 Intake Total 820 ml 850 ml Balance 820 ml 850 ml Exam Constitutional: alert, oriented Head: atraumatic, normocephalic Neck: supple Respiratory: clear to auscultation Cardiovascular: regular rate and rhythm Gastrointestinal: soft Musculoskeletal: nl extremities to inspection Extremities: normal pulses Results Result Diagram: 04/24/17 0646 04/24/17 0646 Results 24 hrs Laboratory Tests Test 04/23/17 16:50 04/23/17 23:05 04/24/17 06:46 Activated Partial Thromboplast Time 47.6 H 64.3 H 79.5 *H White Blood Count 6.8 Red Blood Count 4.26 L Hemoglobin 12.7 L Hematocrit 37.9 L Mean Corpuscular Volume 89.0 Mean Corpuscular Hemoglobin 29.8 Mean Corpuscular Hemoglobin Concent 33.5 Red Cell Distribution Width 12.3 Platelet Count 188 Mean Platelet Volume 10.3 Neutrophils % 57.2 Lymphocytes % 31.5 Monocytes % 10.0 Eosinophils % 0.7 Basophils % 0.3 Nucleated Red Blood Cells % 0.0 Neutrophils # 3.9 Lymphocytes # 2.1 Monocytes # 0.7 Eosinophils # 0.1 Basophils # 0.0 Nucleated Red Blood Cells # 0.0 Sodium Level 139 Potassium Level 4.0 Chloride Level 105 Carbon Dioxide Level 27 Anion Gap 11 Blood Urea Nitrogen 8 Creatinine 0.69 Glucose Level 95 Hemoglobin A1c 5.5 Calcium Level 8.8 Magnesium Level 2.1 Total Bilirubin 0.3 Direct Bilirubin 0.00 Indirect Bilirubin 0.3 Aspartate Amino Transf (AST/SGOT) 54 H Alanine Aminotransferase (ALT/SGPT) 71 H Alkaline Phosphatase 92 Creatine Kinase 208 #H Creatine Kinase Index 2.4 Creatinine Kinase MB (Mass) 4.92 H Troponin I 3.160 *H Total Protein 6.6 # Albumin 4.1 # Globulin 2.50 Albumin/Globulin Ratio 1.64 Triglycerides Level 118 Cholesterol Level 131 LDL Cholesterol, Calculated 85 HDL Cholesterol 22 L Cholesterol/HDL Ratio 5.9 Medications Medications Current Medications Sodium Chloride (NS) 1,000 ml @ 60 mls/hr [id number] IV Last administered on 04/23 20:21; Admin Dose 60 MLS/HR; Start 04/23/17 at 02:38 Ondansetron HCl (Zofran Inj) 4 mg Q6H PRN IV NAUSEA AND/OR VOMITING; Start at 03:00 Acetaminophen (Tylenol Tab) 650 mg Q6H PRN PO PAIN LEVEL 1-3 OR FEVER Last administered on 04/23/17 15:05; Admin Dose 650 MG; Start 04/23/17 at 03:00 Morphine Sulfate (morphine) 2 mg Q4H PRN IV PAIN LEVEL 7-10; Start 04/23/17 at 03:00 Pantoprazole 40 mg 40 mg DAILY@06 IV Last administered on 04/24/17 05:54; Admin Dose 40 MG; Start 04/23/17 at 06:00 Levofloxacin/ Dextrose 150 ml @ 100 mls/hr Q24H IVPB Last administered on 04/24 00:33; Admin Dose 100 MLS/HR; Start 04/24/17 at 01:30 Heparin Sodium (Porcine) (Heparin 40279 Units/250 ml) 250 ml @ 9 mls/hr Q24H IV Last administered on 04/24/17 09:45; Admin Dose 10 MLS/HR; Start 04/23/17 at 03:00 Aspirin (Aspirin) 81 mg DAILY PO Last administered on 04/24/17 08:58; Admin Dose 81 MG; Start 04/23/17 at 09:00 Atorvastatin Calcium (Lipitor) 40 mg HS PO Last administered on 04/23/17 20:20 ; Admin Dose 40 MG; Start 04/23/17 at 21:00 Ibuprofen (Motrin) 400 mg Q8H PO Last administered on 04/24/17 08:58; Admin Dose 400 MG; Start 04/23/17 at 16:00; Stop 04/25/17 at 15:59 OLGA LORENZO MD Apr 24, 2017 11:31
[2017-04-24] MEDS: SOD CHLORIDE 0.9% 1,000 ML IV SCH ×2 (11:58→15:02)
[2017-04-24] MEDS: ACETAMINOPHEN 325 MG TAB PO PRN (17:48)
--- NOTE | 2017-04-24 20:46 | PN ---
Date/Time of Note Date/Time of Note DATE: 04/24/17 TIME: 18:34 Assessment/Plan VTE Prophylaxis VTE Prophylaxis Intervention: heparin (drip) Lines/Catheters IV [facility] ([facility] Peripheral IV Urinary Cath still in place: No Assessment/Plan Assessment/Plan 31-year-old male who presented with left-sided pleuritic chest pain and found to have elevated troponins managed as follows: 1. Fever with elevated cardiac enzymes: presentation suggestive of Gadiel/ pericarditis : ?Viral / Routine flu test negative 2. Right-sided pneumonitis on prophylactic Levaquin for possible pneumonia 3. No mitral valve prolapse on echo 4. Mild Rhabdomyolysis 5. Mild transaminitis PLAN: * Continue Nsaid therapy: patient on motrin, may change to colchicine * Continue heparin drip * Planned for Cardiac CT on wednesday to eval coronary arteries * Continue pain control / supplemental O2 / Supportive care Plan of care has been discussed with patient, questions answered and patient has verbalized understanding. Subjective 24 Hr Interval Summary Free Text/Dictation patient still having pleuritic chest pain Exam/Review of Systems Vital Signs Vitals Vital Signs Date Time Temp Pulse Resp B/P Pulse Ox O2 Delivery O2 Flow Rate FiO2 04/24/17 16:03 95 04/24/17 15:26 99.9 20 121/73 98 04/23/17 02:39 Room Air Intake and Output 04/23/17 04/23/17 04/24/17 15:00 23:00 07:00 Intake Total 820 ml 1450 ml Balance 820 ml 1450 ml Exam GENERAL: Patient is alert, oriented x 3, in no apparent distress; does not appear acutely or chronically ill. Patient is able to sit up unassisted.Patient makes good eye contact, is conversant, interactive, coherent. Patient appears calm and comfortable and is able to follow commands. HEENT: Oropharynx is clear. There is no carotid bruit, no masses. Patient's pupils are equal, round and reactive to light bilaterally. Extraocular motions are intact. There is no scleral icterus. There is no facial asymmetry. NECK: Supple. LUNGS: Clear to auscultation bilaterally with good air entry. No Wheezes or crackles. HEART: S1, S2. No murmur, gallops or rubs. Regular rate and rhythm. ABDOMEN: Soft, nontender. Normoactive bowel sounds. There are no stigmata of chronic liver disease. BACK: no costovertebral angle tenderness. GENITOURINARY: Deferred. EXTREMITIES: No edema. There is no cyanosis, clubbing. There are 2+ pulses bilaterally distally. NEUROLOGIC: The patient has no lateralizing signs. Cranial nerves II-XII are intact. SKIN: Otherwise, unremarkable. Results Result Diagram: 04/24/17 0646 04/24/17 0646 Results 24 hrs Laboratory Tests Test 04/23/17 23:05 04/24/17 06:46 Activated Partial Thromboplast Time 64.3 H 79.5 *H White Blood Count 6.8 Red Blood Count 4.26 L Hemoglobin 12.7 L Hematocrit 37.9 L Mean Corpuscular Volume 89.0 Mean Corpuscular Hemoglobin 29.8 Mean Corpuscular Hemoglobin Concent 33.5 Red Cell Distribution Width 12.3 Platelet Count 188 Mean Platelet Volume 10.3 Neutrophils % 57.2 Lymphocytes % 31.5 Monocytes % 10.0 Eosinophils % 0.7 Basophils % 0.3 Nucleated Red Blood Cells % 0.0 Neutrophils # 3.9 Lymphocytes # 2.1 Monocytes # 0.7 Eosinophils # 0.1 Basophils # 0.0 Nucleated Red Blood Cells # 0.0 Sodium Level 139 Potassium Level 4.0 Chloride Level 105 Carbon Dioxide Level 27 Anion Gap 11 Blood Urea Nitrogen 8 Creatinine 0.69 Glucose Level 95 Hemoglobin A1c 5.5 Calcium Level 8.8 Magnesium Level 2.1 Total Bilirubin 0.3 Direct Bilirubin 0.00 Indirect Bilirubin 0.3 Aspartate Amino Transf (AST/SGOT) 54 H Alanine Aminotransferase (ALT/SGPT) 71 H Alkaline Phosphatase 92 Creatine Kinase 208 #H Creatine Kinase Index 2.4 Creatinine Kinase MB (Mass) 4.92 H Troponin I 3.160 *H Total Protein 6.6 # Albumin 4.1 # Globulin 2.50 Albumin/Globulin Ratio 1.64 Triglycerides Level 118 Cholesterol Level 131 LDL Cholesterol, Calculated 85 HDL Cholesterol 22 L Cholesterol/HDL Ratio 5.9 Medications Medications Current Medications Sodium Chloride (NS) 1,000 ml @ 60 mls/hr [id number] IV Last administered on 04/24t 15:02; Admin Dose 60 MLS/HR; Start 04/23/17 at 02:38 Ondansetron HCl (Zofran Inj) 4 mg Q6H PRN IV NAUSEA AND/OR VOMITING; Start at 03:00 Acetaminophen (Tylenol Tab) 650 mg Q6H PRN PO PAIN LEVEL 1-3 OR FEVER Last administered on 04/24/17 17:48; Admin Dose 650 MG; Start 04/23/17 at 03:00 Morphine Sulfate (morphine) 2 mg Q4H PRN IV PAIN LEVEL 7-10; Start 04/23/17 at 03:00 Pantoprazole 40 mg 40 mg DAILY@06 IV Last administered on 04/24/17 05:54; Admin Dose 40 MG; Start 04/23/17 at 06:00 Levofloxacin/ Dextrose 150 ml @ 100 mls/hr Q24H IVPB Last administered on 04/24 00:33; Admin Dose 100 MLS/HR; Start 04/24/17 at 01:30 Heparin Sodium (Porcine) (Heparin 41005 Units/250 ml) 250 ml @ 9 mls/hr Q24H IV Last administered on 04/24/17 09:45; Admin Dose 10 MLS/HR; Start 04/23/17 at 03:00 Aspirin (Aspirin) 81 mg DAILY PO Last administered on 04/24/17 08:58; Admin Dose 81 MG; Start 04/23/17 at 09:00 Atorvastatin Calcium (Lipitor) 40 mg HS PO Last administered on 04/23/17 20:20 ; Admin Dose 40 MG; Start 04/23/17 at 21:00 Ibuprofen (Motrin) 400 mg Q8H PO Last administered on 04/24/17 16:09; Admin Dose 400 MG; Start 04/23/17 at 16:00; Stop 04/25/17 at 15:59 DOMINGUEZ YOO Apr 24, 2017 18:39
[2017-04-24] MEDS: ATORVASTATIN 40 MG TAB PO SCH (21:37)
[2017-04-25] VITALS (13 sets, daily range): BP systolic 100–136; BP diastolic 55–74; PULSE 69–93; RESP 15–18
[2017-04-25] MEDS: LEVOFLOXACIN 750MG/D5W (PMX) 150 ML IVPB SCH (01:38)
[2017-04-25] MEDS: HEPARIN 25000 UNITS/D5W 250 ML IV SCH ×3 (03:33→15:17)
[2017-04-25] MEDS: SOD CHLORIDE 0.9% 1,000 ML IV SCH ×3 (06:15→23:12)
[2017-04-25] MEDS: PANTOPRAZOLE 40 MG INJ IV SCH (06:15)
[2017-04-25] MEDS: ASPIRIN 81 MG TAB PO SCH (09:02)
[2017-04-25] MEDS: IBUPROFEN 400 MG TAB PO SCH (09:02)
--- NOTE | 2017-04-25 10:30 | PN ---
Date/Time of Note Date/Time of Note DATE: 04/25/17 TIME: 10:24 Assessment/Plan VTE Prophylaxis VTE Prophylaxis Intervention: heparin Lines/Catheters IV [facility]ter Type (from [facility]): Peripheral IV Urinary Cath still in place: No Assessment/Plan Assessment/Plan 31-year-old male who presented with left-sided pleuritic chest pain and found to have elevated troponins managed as follows: 1. Fever with elevated cardiac enzymes: presentation suggestive of Gadiel/ pericarditis : ?Viral / Routine flu test negative 2. Right-sided pneumonitis on prophylactic Levaquin for possible pneumonia 3. No mitral valve prolapse on echo 4. Mild Rhabdomyolysis likely / #1: improved 5. Mild transaminitis PLAN: * Continue Nsaid therapy: * Continue heparin drip for now until told otherwise by cardiology * Consider d/c levaquin * Planned for Cardiac CT on wednesday to eval coronary arteries * Continue pain control / supplemental O2 / Supportive care Plan of care has been discussed with patient, questions answered and patient has verbalized understanding. Subjective 24 Hr Interval Summary Free Text/Dictation pleuritic chest pain is less Exam/Review of Systems Vital Signs Vitals Vital Signs Date Time Temp Pulse Resp B/P Pulse Ox O2 Delivery O2 Flow Rate FiO2 04/25/17 08:14 69 04/25/17 08:10 98.6 18 128/73 97 Room Air Intake and Output 04/24/17 04/24/17 04/25/17 15:00 23:00 07:00 Intake Total 400 ml 1040 ml 1280 ml Balance 400 ml 1040 ml 1280 ml Exam GENERAL: Patient is alert, oriented x 3, in no apparent distress; does not appear acutely or chronically ill. Patient is able to sit up unassisted.Patient makes good eye contact, is conversant, interactive, coherent. Patient appears calm and comfortable and is able to follow commands. HEENT: Oropharynx is clear. There is no carotid bruit, no masses. Patient's pupils are equal, round and reactive to light bilaterally. Extraocular motions are intact. There is no scleral icterus. There is no facial asymmetry. NECK: Supple. LUNGS: Clear to auscultation bilaterally with good air entry. No Wheezes or crackles. HEART: S1, S2. No murmur, gallops or rubs. Regular rate and rhythm. ABDOMEN: Soft, nontender. Normoactive bowel sounds. There are no stigmata of chronic liver disease. BACK: no costovertebral angle tenderness. GENITOURINARY: Deferred. EXTREMITIES: No edema. There is no cyanosis, clubbing. There are 2+ pulses bilaterally distally. NEUROLOGIC: The patient has no lateralizing signs. Cranial nerves II-XII are intact. SKIN: Otherwise, unremarkable. Results Result Diagram: 04/24/17 0646 04/24/17 0646 Results 24 hrs Laboratory Tests Test 04/25/17 05:30 Activated Partial Thromboplast Time 72.0 *H Medications Medications Current Medications Sodium Chloride (NS) 1,000 ml @ 60 mls/hr [id number] IV Last administered on 04/25 06:15; Admin Dose 60 MLS/HR; Start 04/23/17 at 02:38 Ondansetron HCl (Zofran Inj) 4 mg Q6H PRN IV NAUSEA AND/OR VOMITING; Start at 03:00 Acetaminophen (Tylenol Tab) 650 mg Q6H PRN PO PAIN LEVEL 1-3 OR FEVER Last administered on 04/24/17 17:48; Admin Dose 650 MG; Start 04/23/17 at 03:00 Morphine Sulfate (morphine) 2 mg Q4H PRN IV PAIN LEVEL 7-10; Start 04/23/17 at 03:00 Pantoprazole 40 mg 40 mg DAILY@06 IV Last administered on 04/25/17 06:15; Admin Dose 40 MG; Start 04/23/17 at 06:00 Levofloxacin/ Dextrose 150 ml @ 100 mls/hr Q24H IVPB Last administered on 04/25 01:38; Admin Dose 100 MLS/HR; Start 04/24/17 at 01:30 Heparin Sodium (Porcine) (Heparin 33293 Units/250 ml) 250 ml @ 9 mls/hr Q24H IV Last administered on 04/25/17 07:29; Admin Dose 9 MLS/HR; Start 04/23/17 at 03:00 Aspirin (Aspirin) 81 mg DAILY PO Last administered on 04/25/17 09:02; Admin Dose 81 MG; Start 04/23/17 at 09:00 Atorvastatin Calcium (Lipitor) 40 mg HS PO Last administered on 04/24/17 21:37 ; Admin Dose 40 MG; Start 04/23/17 at 21:00 Ibuprofen (Motrin) 400 mg Q8H PO Last administered on 04/25/17t 09:02; Admin Dose 400 MG; Start 04/23/17 at 16:00; Stop 04/25/17 at 15:59 DOMINGUEZ YOO Apr 25, 2017 10:30
[2017-04-25] MEDS: COLCHICINE 0.6 MG TAB PO SCH ×2 (12:13→21:47)
--- NOTE | 2017-04-25 12:57 | CONS ---
Date/Time of Note Date/Time of Note DATE: 04/25/17 TIME: 12:55 Assessment/Plan Assessment/Plan Additional Assessment/Plan Elevated troponin Preserved ejection fraction SIRS Fever -Troponins are trending down, denies further symptoms of chest pain or shortness of breath. Pending CT coronary angiogram in a.m. Because of fevers and recurrent tachycardia, unable to be performed yet. Consultation Date/Type/Reason Admit Date/Time Apr 23, 2017 at 00:44 Initial Consult Date Type of Consultation: cv 24 HR Interval Summary Free Text/Dictation Patient denies chest pain, shortness of breath or palpitations. Feeling much better Exam/Review of Systems Vital Signs Vitals Vital Signs Date Time Temp Pulse Resp B/P Pulse Ox O2 Delivery O2 Flow Rate FiO2 04/25/17 12:18 97.8 85 16 100/55 97 Room Air Intake and Output 04/24/17 04/24/17 04/25/17 15:00 23:00 07:00 Intake Total 400 ml 1040 ml 1280 ml Balance 400 ml 1040 ml 1280 ml Exam No apparent distress Constitutional: alert, oriented Head: normocephalic Neck: supple Respiratory: clear to auscultation, normal air movement Cardiovascular: other (S1-S2 heard), regular rate and rhythm Gastrointestinal: bowel sounds, non-tender, soft Extremities: other (No edema) Results Result Diagram: 04/24/17 0646 04/24/17 0646 Results 24 hrs Laboratory Tests Test 04/25/17 05:30 Activated Partial Thromboplast Time 72.0 *H Medications Medications Current Medications Sodium Chloride (NS) 1,000 ml @ 60 mls/hr [id number] IV Last administered on 04/25 06:15; Admin Dose 60 MLS/HR; Start 04/23/17 at 02:38 Ondansetron HCl (Zofran Inj) 4 mg Q6H PRN IV NAUSEA AND/OR VOMITING; Start at 03:00 Acetaminophen (Tylenol Tab) 650 mg Q6H PRN PO PAIN LEVEL 1-3 OR FEVER Last administered on 04/24/17 17:48; Admin Dose 650 MG; Start 04/23/17 at 03:00 Morphine Sulfate 2 mg 2 mg Q4H PRN IV PAIN LEVEL 7-10; Start 04/23/17 at 03:00 Levofloxacin/ Dextrose 150 ml @ 100 mls/hr Q24H IVPB Last administered on 04/25 01:38; Admin Dose 100 MLS/HR; Start 04/24/17 at 01:30 Heparin Sodium (Porcine) (Heparin 26741 Units/250 ml) 250 ml @ 9 mls/hr Q24H IV Last administered on 04/25/17 07:29; Admin Dose 9 MLS/HR; Start 04/23/17 at 03:00 Aspirin (Aspirin) 81 mg DAILY PO Last administered on 04/25/17 09:02; Admin Dose 81 MG; Start 04/23/17 at 09:00 Atorvastatin Calcium (Lipitor) 40 mg HS PO Last administered on 04/24/17 21:37 ; Admin Dose 40 MG; Start 04/23/17 at 21:00 Ibuprofen (Motrin) 400 mg Q8H PO Last administered on 04/25/17 09:02; Admin Dose 400 MG; Start 04/23/17 at 16:00; Stop 04/25/17 at 15:59 Colchicine (Colchicine) 0.6 mg BID PO Last administered on 04/25/17 12:13; Admin Dose 0.6 MG; Start 04/25/17 at 11:00 Pantoprazole (Protonix Tab) 40 mg DAILY@06 PO ; Start 04/26/17 at 06:00 Malik Jaime DO Apr 25, 2017 12:56
[2017-04-25] MEDS ORDERED: BISACODYL (EC) 5 MG TAB PO PRN (13:30)
[2017-04-25] MEDS: DOCUSATE SODIUM 100 MG CAP PO SCH ×2 (14:16→23:11)
[2017-04-25] MEDS: ACETAMINOPHEN 325 MG TAB PO PRN (19:00)
[2017-04-25] MEDS ORDERED: METOPROLOL 50 MG TAB PO ONE (21:00)
[2017-04-25] MEDS: ATORVASTATIN 40 MG TAB PO SCH (21:47)
[2017-04-26] VITALS (8 sets, daily range): BP systolic 109–130; BP diastolic 58–65; PULSE 68–101; RESP 17–20
[2017-04-26] MEDS: LEVOFLOXACIN 750MG/D5W (PMX) 150 ML IVPB SCH (01:45)
[2017-04-26 02:53] LABS: ADD SCAN DIFF NO
[2017-04-26 02:54] LABS: BASOPHILS % 0.3 % (0.0-2.0); EOSINOPHILS # 0.1 10^3/ul (0.0-0.5); HEMATOCRIT 37.7 % (42.0-52.0); HEMOGLOBIN 12.7 g/dl (14.0-18.0); LYMPHOCYTES # 2.4 10^3/ul (0.8-2.9); LYMPHOCYTES % 39.2 % (15.0-51.0); MEAN CORPUSCULAR HEMOGLOBIN 29.7 pg (29.0-33.0); MEAN CORPUSCULAR HGB CONC 33.7 g/dl (32.0-37.0); MEAN CORPUSCULAR VOLUME 88.1 fl (82.0-101.0); MEAN PLATELET VOLUME 9.6 fl (7.4-10.4); MONOCYTE # 0.5 10^3/ul (0.3-0.9); MONOCYTES % 8.1 % (0.0-11.0); NEUTROPHIL # 3.1 10^3/ul (1.6-7.5); NEUTROPHILS % 50.6 % (39.0-77.0); PLATELET COUNT 230 10^3/UL (140-415); RED BLOOD COUNT 4.28 10^6/ul (4.70-6.10); WHITE BLOOD COUNT 6.2 10^3/ul (4.8-10.8)
[2017-04-26 03:11] LABS: ALBUMIN 4.1 g/dl (3.3-4.9); ALBUMIN/GLOBULIN RATIO 1.57; BILIRUBIN,INDIRECT 0.2 mg/dl (0-1.1); BILIRUBIN,TOTAL 0.2 mg/dl (0.2-1.3); CREATININE 0.83 mg/dl (0.61-1.24); POTASSIUM 3.9 mmol/L (3.5-5.1); TOTAL PROTEIN 6.7 g/dl (6.1-8.1)
[2017-04-26] MEDS: HEPARIN 25000 UNITS/D5W 250 ML IV SCH (03:41)
[2017-04-26] MEDS ORDERED: PANTOPRAZOLE (EC) 40 MG TAB PO SCH (06:00)
[2017-04-26] MEDS ORDERED: METOPROLOL 50 MG TAB PO ONE (06:30)
[2017-04-26] MEDS: DOCUSATE SODIUM 100 MG CAP PO SCH (10:19)
[2017-04-26] MEDS: ASPIRIN 81 MG TAB PO SCH (10:19)
[2017-04-26] MEDS: COLCHICINE 0.6 MG TAB PO SCH (10:19)
[2017-04-26] MEDS ORDERED: METOPROLOL 100 MG TAB PO ONE (12:00)
[2017-04-26] MEDS ORDERED: ACETAMINOPHEN 325 MG TAB PO ONE (12:00)
[2017-04-26] MEDS ORDERED: METOPROLOL 50 MG TAB PO STA ×2 (13:36→14:56)
--- NOTE | 2017-04-26 15:31 | CONS ---
Date/Time of Note Date/Time of Note DATE: 04/26/17 TIME: 15:30 Assessment/Plan Assessment/Plan Additional Assessment/Plan Elevated troponin Preserved ejection fraction SIRS Fever -Patient awaiting CT cardiac angiogram. If no evidence of obstructive disease, could DC IV heparin. Consultation Date/Type/Reason Admit Date/Time Apr 23, 2017 at 00:44 Type of Consultation: cv 24 HR Interval Summary Free Text/Dictation Denies chest pain, shortness of breath, feeling much better Exam/Review of Systems Vital Signs Vitals Vital Signs Date Time Temp Pulse Resp B/P Pulse Ox O2 Delivery O2 Flow Rate FiO2 04/26/17 12:01 85 04/26/17 10:19 98.4 20 130/61 99 Room Air Intake and Output 04/25/17 04/25/17 04/26/17 15:00 23:00 07:00 Intake Total 1920 ml 1125.5 ml Balance 1920 ml 1125.5 ml Exam No apparent distress, family at bedside Constitutional: alert, oriented Head: normocephalic Neck: supple Respiratory: clear to auscultation, normal air movement Cardiovascular: other (S1-S2 heard), regular rate and rhythm Gastrointestinal: bowel sounds, non-tender, soft Extremities: other (No edema) Results Result Diagram: 04/26/17 0250 04/26/17 0250 Results 24 hrs Laboratory Tests Test 04/25/17 20:37 04/26/17 02:50 Activated Partial Thromboplast Time 61.3 H 62.5 H White Blood Count 6.2 Red Blood Count 4.28 L Hemoglobin 12.7 L Hematocrit 37.7 L Mean Corpuscular Volume 88.1 Mean Corpuscular Hemoglobin 29.7 Mean Corpuscular Hemoglobin Concent 33.7 Red Cell Distribution Width 12.0 Platelet Count 230 # Mean Platelet Volume 9.6 Neutrophils % 50.6 Lymphocytes % 39.2 Monocytes % 8.1 Eosinophils % 1.0 Basophils % 0.3 Nucleated Red Blood Cells % 0.0 Neutrophils # 3.1 Lymphocytes # 2.4 Monocytes # 0.5 Eosinophils # 0.1 Basophils # 0.0 Nucleated Red Blood Cells # 0.0 Sodium Level 141 Potassium Level 3.9 Chloride Level 106 Carbon Dioxide Level 27 Anion Gap 12 Blood Urea Nitrogen 5 L Creatinine 0.83 Glucose Level 109 Calcium Level 9.0 Magnesium Level 2.0 Total Bilirubin 0.2 Direct Bilirubin 0.00 Indirect Bilirubin 0.2 Aspartate Amino Transf (AST/SGOT) 171 #H Alanine Aminotransferase (ALT/SGPT) 159 H Alkaline Phosphatase 119 Total Protein 6.7 Albumin 4.1 Globulin 2.60 Albumin/Globulin Ratio 1.57 Medications Medications Current Medications Sodium Chloride (NS) 1,000 ml @ 60 mls/hr [id number] IV Last administered on 04/25 23:12; Admin Dose 60 MLS/HR; Start 04/23/17 at 02:38 Ondansetron HCl (Zofran Inj) 4 mg Q6H PRN IV NAUSEA AND/OR VOMITING; Start at 03:00 Acetaminophen (Tylenol Tab) 650 mg Q6H PRN PO PAIN LEVEL 1-3 OR FEVER Last administered on 04/25/17 19:00; Admin Dose 650 MG; Start 04/23/17 at 03:00 Morphine Sulfate 2 mg 2 mg Q4H PRN IV PAIN LEVEL 7-10; Start 04/23/17 at 03:00 Levofloxacin/ Dextrose 150 ml @ 100 mls/hr Q24H IVPB Last administered on 04/26 01:45; Admin Dose 100 MLS/HR; Start 04/24/17 at 01:30 Heparin Sodium (Porcine) (Heparin 32005 Units/250 ml) 250 ml @ 9 mls/hr Q24H IV Last administered on 04/26/17 03:41; Admin Dose 10.5 MLS/HR; Start 04/23/17 at 03:00 Aspirin (Aspirin) 81 mg DAILY PO Last administered on 04/26/17 10:19; Admin Dose 81 MG; Start 04/23/17 at 09:00 Atorvastatin Calcium (Lipitor) 40 mg HS PO Last administered on 04/25/17 21:47 ; Admin Dose 40 MG; Start 04/23/17 at 21:00 Colchicine (Colchicine) 0.6 mg BID PO Last administered on 04/26/17 10:19; Admin Dose 0.6 MG; Start 04/25/17 at 11:00 Pantoprazole (Protonix Tab) 40 mg DAILY@06 PO Last administered on 04/26/17 06 :47; Admin Dose 40 MG; Start 04/26/17 at 06:00 Bisacodyl (Dulcolax) 10 mg DAILY PRN PO CONSTIPATION; Start 04/25/17 at 13:30 Docusate Sodium (Colace) 100 mg BID PO Last administered on 04/26/17t 10:19; Admin Dose 100 MG; Start 04/25/17 at 14:00 Malik Jaime DO Apr 26, 2017 15:31
[2017-04-26] MEDS ORDERED: IOHEXOL 100 ML ONE (15:53)
[2017-04-26] MEDS ORDERED: SOD CHLORIDE 0.9% 100 ML ONE (15:53)
[2017-04-26] MEDS ORDERED: IOHEXOL 350MG/ML 50 ML BTL ONE (15:54)
[2017-04-26] MEDS ORDERED: NITROGLYCERIN AEROSOL (4.9 GM) ONE (16:06)
--- NOTE | 2017-04-26 17:09 | RADRPT ---
PROCEDURE: CTA OF THE HEART AND CORONARY ARTERIES WITH CONTRAST CT CALCIUM SCORE CLINICAL INDICATION: Chest pain COMPARISON: CT chest 04/22/2017 TECHNIQUE: CT calcium score performed without intravenous contrast. Multiphasic ECG-gated volumetri c acquisition from the ascending aorta to the diaphragm performed with intravenous contrast on a hig h-resolution multi detector scanner with multiphasic reconstructions. Multiplanar reconstructions, t hree-dimensional reconstructions, as well as maximal intensity projection images are produced and re viewed. One or more of the following dose reduction techniques were used: Automated exposure control ; Adjustment of the mA and/or kV according to patient size; Use of iterative reconstruction techniqu e; ECG dose modulation. CTDI = 8, 27, 83 mGy. DLP = 1167 mGy-cm. Stenosis classification of vessels greater than 1.5 mm in diameter: None0% Minimal1-24% Qebx20-14% Oqszlryv75-76% Rymjve75-90% Wzevjiei821% (When a vessel appears focally occluded with distal reconstitution there may be trac e patency which is below the resolution of the examination or collateral pathways may exist.) CONTRAST: 100 mL of Omnipaque 350 intravenously without adverse event. FINDINGS: CORONARY CT ANGIOGRAM: Overall quality of the CT angiographic examination is excellent. Normal origins of the coronary arteries are present. The coronary artery system is right dominant. Total calcium score: 0 Right Coronary Artery: Widely patent without focal irregularity, mural plaque, or significant stenos is. The acute marginal branch enhances normally. Posterior descending and posterior lateral coronary artery branches are widely patent. Left Main Coronary Artery: Widely patent without focal irregularity, mural plaque, or significant st enosis. A moderately sized ramus intermedius branch is present which is widely patent. Left Anterior Descending Coronary Artery: Widely patent without focal irregularity, mural plaque, or significant stenosis. Visualized septal and diagonal branches: Widely patent without focal irregularity, mural plaque, or significant stenosis. Left Circumflex Coronary Artery: Widely patent without focal irregularity, mural plaque, or signific ant stenosis. Visualized obtuse marginal branches: Widely patent throughout, without focal significant stenosis. Normal appearance of the pericardium. No pericardial effusion. Normal appearing trileaflet aortic valve. Normal appearance of the mitral valve. Myocardial attenuation appears within normal limits. Left atrial appendage is well opacified. No evidence of intracardiac mass or thrombus. EXTRACARDIAC FINDINGS: Thoracic aorta: Normal caliber. Pulmonary vessels: Normal caliber pulmonary arteries. No evidence of central filling defect. Conven tional pulmonary venous return. Chest: The visualized lung parenchyma is unremarkable. No mediastinal lymphadenopathy. Abdomen: Incidental imaging of the upper abdomen is unremarkable. IMPRESSION: Total calcium score: 0 Right Coronary Artery: Widely patent without focal irregularity, mural plaque, or significant stenos is. Left Main Coronary Artery: Widely patent without focal irregularity, mural plaque, or significant st enosis. Left Anterior Descending Coronary Artery: Widely patent without focal irregularity, mural plaque, or significant stenosis. Left Circumflex Coronary Artery: Widely patent without focal irregularity, mural plaque, or signific ant stenosis. RPTAT: AADD .Lc Walker MD, MD Date Time Electronically viewed and signed by .Lc Walker MD, MD on 04/26/2017 17:09 .B/
--- NOTE | 2017-04-26 18:15 | PDOCDIS ---
Discharge Instructions CONDITION Patient Condition: Stable HOME CARE INSTRUCTIONS: Special Diet: Regular diet ACTIVITY: Activity Restrictions: Slowly Increase Activity FOLLOW UP/APPOINTMENTS Appointments Take your meds, see doctor in clinic in 1 week. PATRICK PRECIADO Apr 26, 2017 18:15
[2017-04-26] MEDS ORDERED: ASPI-664 PO (18:16)
--- NOTE | 2017-04-26 19:03 | DS ---
DATE OF ADMISSION: 04/23/2017 DATE OF DISCHARGE: 04/26/2017 HOSPITAL COURSE: The patient came in with left-sided pleuritic chest pain, found to have elevated t roponins, was medically managed, seen by cardiology team. There was a concern of possible pericardi tis. Routine flu test was negative. The patient was started on antibiotics for right-sided pneumon itis as well. The patient had some mild rhabdomyolysis, which improved as well. He underwent some imaging studies including a CT of the chest, which showed no signs of an aortic dissection or aneury sms. No pulmonary embolisms. He also underwent a CT abdomen and pelvis that showed no acute findin gs. Then he underwent a cardiac CT that showed widely patent RCA, left main, LAD, and left circumfl ex as well. The patient's symptoms improved. He was recommended to be only on aspirin. His vital signs are stable. He is ambulating, tolerating a p.o. diet. He will be discharged home today in im proved condition. DISCHARGE MEDICATIONS: He will be sent home on: 1. Aspirin 81 mg daily. 2. Ibuprofen 600 mg q.6 hours. FOLLOWUP: Continue follow up with primary care doctor in clinic in 1 to 2 weeks and given strict re turn precautions. FINAL DIAGNOSES: 1. Chest pain and elevated troponins, likely secondary to inflammatory response and mild pericardit is with a cardiac CT chest. The cardiac CT results are normal. 2. Right-sided pneumonitis, improved on antibiotic treatment. 3. Mild rhabdomyolysis, improving. 4. Mild transaminitis, stable. Time spent discharging patient 40 minutes. Dictated By: PATRICK CRUZ Conf#: [id number] DID#: [id number] CC: MARIANNE VILLAGRAN MD;*EndCC*
== END 2017-04-26 20:15 | disposition home or self-care (01) | DRG 314 ==
LOC: FTE 19:43 → MS4 04-23 00:44
PROVIDERS: ADMIT Family Medicine; ATTEND Family Medicine
DX: I31.9 Disease of pericardium, unspecified (principal); J18.9 Pneumonia, unspecified organism; M62.82 Rhabdomyolysis; R65.10 Systemic inflammatory response syndrome (SIRS) of non-infectious origin without acute organ dysfunction; F17.200 Nicotine dependence, unspecified, uncomplicated; R74.0 Nonspecific elevation of levels of transaminase and lactic acid dehydrogenase [LDH]; I34.1 Nonrheumatic mitral (valve) prolapse
CPT/HCPCS: 36415; 71010; 71275; 74177; 75571; 75574; 76705; 80053; 80061; 80307; 81003; 82550; 82553; 83036; 83605; 83735; 84484; 85025; 85610; 85730; 87040; 87086; 87400; 93005; 93306; 96374; 96375; C9113; J0696; J1644; J1956; J7030; Q9967